=== PATIENT | female | born 1985 | race African-American/Black ===

== ENCOUNTER 2018-05-18 12:37 | Emergency (ER) | payer SELFPAY, OTHER ==
[2018-05-18] MEDS: IBUPROFEN 800 MG TAB PO (13:39)
== END 2018-05-18 15:08 | disposition home or self-care (01) ==
LOC: FTE 12:37
DX: S61.301A Unspecified open wound of left index finger with damage to nail, initial encounter (principal); S19.9XXA Unspecified injury of neck, initial encounter; S29.9XXA Unspecified injury of thorax, initial encounter; V49.40XA Driver injured in collision with unspecified motor vehicles in traffic accident, initial encounter
CPT/HCPCS: 71100; 72040; 73140; 99284-25